=== PATIENT | male | born 1945 | race Caucasian/White ===

== ENCOUNTER 2017-09-21 22:49 | Emergency (ER) | END 2017-09-22 02:45 | disposition home or self-care (01) ==

== ENCOUNTER 2018-09-28 21:48 | Observation (INO) | payer MEDICARE, OTHER ==
[~2018-09-28] VITALS: Ht 167.6 cm; Wt 95.0 kg
[~2018-09-28 21:48] MED LIST: MECL-77 PO; ONDA4TAB14 PO
[2018-09-28 21:55] VITALS: Ht 167.6 cm; Wt 95.0 kg
--- NOTE | 2018-09-28 22:19 | ERD ---
ER Documentation Chief Complaint Chief Complaint [id number],chest pain relieved by aspirin 162 mg & nitro X3,hx CABG HPI The patient is 72-year-old male, presenting to the ER because of left-sided chest pain at 8pm about an hour after he finished eating, radiating down to the left. He had similar symptoms 2 days ago that lasted for about an hour. He denies chest pain with vomiting/exertion/diaphoresis, dyspnea, abdominal pain, vomiting, dysuria, diarrhea. He does not smoke nor drink He was treated by EMS aspirin 162 mg p.o. and 3 nitroglycerin spray with good response. He has minimal chest pain in the ER Medical history: CAD, history of TIA, hypertension, dyslipidemia, diabetes mellitus Past surgical history: CABG, bilateral inguinal herniorrhaphy ROS All systems reviewed and are negative except as per history of present illness. Medications Home Meds Active Scripts Ondansetron (Ondansetron Odt) 4 Mg Tab.rapdis, 4 MG PO Q6H PRN for NAUSEA AND/OR VOMITING, #10 TAB Prov:EVANGELIST MILAN DO 09/22/17 Meclizine Hcl* (Meclizine Hcl*) 25 Mg Tablet, 25 MG PO Q8H PRN for DIZZINESS, #22 TAB Prov:GREENEVANGELIST DO 09/22/17 Allergies Allergies: Coded Allergies: pioglitazone (Verified Allergy, Unknown, 09/21/17) PMhx/Soc History of Surgery: Yes (CABG 1998; ) Hx Neurological Disorder: Yes (TIA) Hx Cardiac Disorders: Yes (HTN; HLD) Hx Miscellaneous Medical Probl: Yes (DM) Hx Alcohol Use: Yes (SOCIAL) Hx Substance Use: No Hx Tobacco Use: No Smoking Status: Never smoker Physical Exam Vitals Vital Signs Date Temp Pulse Resp B/P (MAP) Pulse Ox O2 O2 Flow FiO2 Time Delivery Rate 09/28/18 Nasal 2 23:02 Cannula 09/28/18 100 18 116/69 100 Room Air 22:43 (85) 09/28/18 98.2 114 18 135/81 98 21:55 (99) Physical Exam Const: No acute distress. Head: Atraumatic. Eyes: Normal Conjunctiva. ENT: Normal External Ears, Nose and Mouth. Neck: Full range of motion. No meningismus. Resp: Clear to auscultation bilaterally. Cardio: Regular rate and rhythm. Abd: Soft, obese, normal bowel sounds, non tender. Skin: No petechiae or rashes. Back: No midline or flank tenderness. Ext: No cyanosis, or edema. Neur: Awake and alert. No focal deficit Psych: Normal Mood and Affect. Result Diagram: 09/28/182 09/28/182301 Results 24 hrs Laboratory Tests Test 09/28/18 23:02 White Blood Count 7.0 10^3/ul Red Blood Count 5.03 10^6/ul Hemoglobin 12.8 g/dl Hematocrit 40.3 % Mean Corpuscular Volume 80.1 fl Mean Corpuscular Hemoglobin 25.4 pg Mean Corpuscular Hemoglobin Concent 31.8 g/dl Red Cell Distribution Width 13.4 % Platelet Count 235 10^3/UL Mean Platelet Volume 11.0 fl Immature Granulocytes % 0.300 % Neutrophils % 59.0 % Lymphocytes % 29.5 % Monocytes % 7.8 % Eosinophils % 3.0 % Basophils % 0.4 % Nucleated Red Blood Cells % 0.0 /100WBC Immature Granulocytes # 0.020 10^3/ul Neutrophils # 4.1 10^3/ul Lymphocytes # 2.1 10^3/ul Monocytes # 0.6 10^3/ul Eosinophils # 0.2 10^3/ul Basophils # 0.0 10^3/ul Nucleated Red Blood Cells # 0.0 10^3/ul Sodium Level 140 mmol/L Potassium Level 4.4 mmol/L Chloride Level 101 mmol/L Carbon Dioxide Level 29 mmol/L Anion Gap 10 Blood Urea Nitrogen 17 mg/dl Creatinine 0.74 mg/dl Est Glomerular Filtrat Rate mL/min mL/min Glucose Level 316 mg/dl Calcium Level 10.0 mg/dl Troponin I < 0.012 ng/ml Procedures/MDM EKG: at 9:50pm Read by emergency physician Rate/Rhythm: Sinus tachycardia 115 beats/min QRS, ST, T-waves: No ST elevation, no T inversion, LPFB, inferior Q's Impression: Abnormal EKG EKG: at 11:34pm Read by emergency physician Rate/Rhythm: Normal Sinus Rhythm 81 beats/min QRS, ST, T-waves: No ST elevation, no T inversion, inferior Q's Impression: Abnormal EKG Portable chest x-ray radiologist report is pending MEDICAL MAKING DECISION: The patient is a 72-year-old male with multiple cardiac risk factors, presenting with acute chest pain that is concerning for acute ACS. The differential diagnoses considered include but are not limited to acute coronary syndrome, acute myocardial infarction, pericarditis, pulmonary embolism, aortic dissection, pneumonia, pleural effusion, pneumothorax, GERD, chest wall pain. Departure Diagnosis: Primary Impression: Chest pain Additional Impressions: Diabetes mellitus with hyperglycemia Anemia Condition: Stable Comments I discussed the findings with the patient. I discussed the patient with Dr. Chambers at 12:05 AM, who was made aware of the lab, the treatment, the patient condition. The patient is admitted to Tel Obs Disclaimer: Inadvertent spelling and grammatical errors are likely due to EHR/dictation software use and do not reflect on the overall quality of patient care. Also, please note that the electronic time recorded on this note does not necessarily reflect the actual time of the patient encounter. VINCENT ESTES MD September 28, 2018 22:19
[2018-09-29] VITALS (11 sets, daily range): BP systolic 128–157; BP diastolic 68–87; PULSE 79–101; RESP 18–20
[2018-09-29] MEDS ORDERED: DOCUSATE SODIUM 100 MG CAP PO PRN (00:30)
[2018-09-29] MEDS ORDERED: BISACODYL (EC) 5 MG TAB PO PRN (00:30)
[2018-09-29] MEDS ORDERED: ACETAMINOPHEN 325 MG TAB PO PRN (00:30)
[2018-09-29] MEDS ORDERED: NACL 0.9% 3 ML SYG IV SCH (00:30)
[2018-09-29] MEDS ORDERED: morphine 2 MG INJ IV PRN (00:30)
[2018-09-29] MEDS ORDERED: ONDANSETRON 4 MG INJ IV PRN (00:30)
[2018-09-29] MEDS ORDERED: NITROGLYCERIN (SL) 0.4 MG TAB SL PRN (00:30)
--- NOTE | 2018-09-29 00:31 | HP ---
Date/Time of Note Date/Time of Note DATE: 09/29/18 TIME: 00:30 Assessment/Plan VTE Prophylaxis SCD applied (from Nsg): Yes Pharmacological prophylaxis: NA/contraindicated Pharm contraindication: low risk/ambulating Lines/Catheters IV Catheter Type (from Nrsg): Peripheral IV Assessment/Plan Hospital Course This is a 72-year-old male being admitted to the telemetry floor for: #1 chest pain: Rule out ACS versus GI cause. Patient does have a significant cardiac history as well as risk factors therefore we will rule out ACS. Will check cardiac enzymes x3, the first that was negative. Will check an echocardiogram. Resume aspirin/statin/beta-fátima/ ARB. Will consult cardiology . We will also initiate the patient on Zantac 150 mg twice daily. #2 suspect GERD: I have counseled him on decreasing his spicy food intake as well as fatty foods. I have suggested not eating meals less than 3 hours before bedtime. Sleep with head elevated with additional pillows. I will also initiate him on Zantac 150 mg twice daily. #3 coronary artery disease: Patient is status post CABG, AAA repair. Continue aspirin/beta-fátima/ARB/statin #4 diabetes mellitus: We will check hemoglobin A 1C, will resume Lantus, will hold home oral medications. #5 hyperlipidemia: Continue statin, fibrate, check lipid panel #6 DVT GI prophylaxis: SCDs, H2 fátima Further treatment strategy will be implemented as per the clinical course Result Diagram: 09/28/18 2302 09/28/18 2302 Results 24hrs Laboratory Tests Test 09/28/18 23:02 White Blood Count 7.0 Red Blood Count 5.03 Hemoglobin 12.8 L Hematocrit 40.3 L Mean Corpuscular Volume 80.1 L Mean Corpuscular Hemoglobin 25.4 L Mean Corpuscular Hemoglobin Concent 31.8 L Red Cell Distribution Width 13.4 Platelet Count 235 # Mean Platelet Volume 11.0 H Immature Granulocytes % 0.300 Neutrophils % 59.0 Lymphocytes % 29.5 Monocytes % 7.8 Eosinophils % 3.0 Basophils % 0.4 Nucleated Red Blood Cells % 0.0 Immature Granulocytes # 0.020 Neutrophils # 4.1 Lymphocytes # 2.1 Monocytes # 0.6 Eosinophils # 0.2 Basophils # 0.0 Nucleated Red Blood Cells # 0.0 Sodium Level 140 Potassium Level 4.4 Chloride Level 101 Carbon Dioxide Level 29 Anion Gap 10 Blood Urea Nitrogen 17 Creatinine 0.74 Est Glomerular Filtrat Rate mL/min Glucose Level 316 H Calcium Level 10.0 Troponin I < 0.012 HPI/ROS Admit Date/Time Admit Date/Time Hx of Present Illness Chief complaint: Left-sided chest pain after eating This is a 72-year-old male with a past medical history of CABG and AAA repair who presented to the emergency department with left-sided chest pain. He did present via EMS and received a loading dose of aspirin as well as 3 nitroglycerin spray prior to coming to the emergency department. Patient reports that after eating he experienced chest pain an hour after at approximately 8 PM. He states that he had radiation to his left arm. His is also present at the bedside and she also reported that 2 days prior to that he had a similar episode again that occurred with him eating as well. He denies any diaphoresis or nausea vomiting or lower extremity edema. He does report that he eats spicy food. Allergies: Actos Medications: See LEIGH WAGNER Const: As per HPI Eyes : No pain discharge or redness or change in visual acuity ENT: No pain, sore throat, congestion, congestion, dysphagia or discharge Respiratory: No shortness of breath, cough, sputum, wheezing, or pleuritic pain Cardiovascular: As per HPI GI : As per HPI Genitourinary: No dysuria, hematuria, flank pain , discharge or CVA tenderness Musculoskeletal: No joint pain, back pain, neck pain, restricted range of motion in neck or joints Skin: No rash, bruising or hives Neuro: No headache, dizziness, syncope, seizure, focal weakness Endocrine: No polyuria, polydipsia, temperature intolerance Psych: No hallucination, depression, anxiety or suicidal ideation PMH/Family/Social Past Medical History CAD, history of TIA, hypertension, dyslipidemia, diabetes mellitus Medications Current Medications IV Flush (NS 3 ml) 3 ml PER PROTOCOL IV ; Start 09/29/18 at 00:30 Ondansetron HCl (Zofran Inj) 4 mg Q6H PRN IV NAUSEA/VOMITING; Start 09/29/18 at 00:30 Aspirin (Aspirin) 81 mg DAILY PO ; Start 09/29/18 at 09:00 Nitroglycerin (Nitroglycerin (Sl Tab) 0.4 Mg) 1 tab Q5M PRN SL .CHEST PAIN; Start 09/29/18 at 00:30 Acetaminophen (Tylenol Tab) 650 mg Q6H PRN PO .PAIN 1-3 OR TEMP; Start 09/29/18 at 00:30 Morphine Sulfate (morphine) 2 mg Q4H PRN IV .PAIN 7-10; Start 09/29/18 at 00:30 Docusate Sodium (Colace) 100 mg Q12H PRN PO .CONSTIPATION; Start 09/29/18 at 00:30 Bisacodyl (Dulcolax) 5 mg DAILY PRN PO .CONSTIPATION; Start 09/29/18 at 00:30 Coded Allergies: pioglitazone (Unverified Allergy, Unknown, 09/29/18) Past Surgical History CABG, bilateral inguinal herniorrhaphy, AAA repair Family History Significant Family History: no pertinent family hx Social History Alcohol Use: occasionally Smoking Status: Never smoker Drug Use: none Exam/Review of Systems Vital Signs Vitals Vital Signs Date Temp Pulse Resp B/P (MAP) Pulse Ox O2 O2 Flow FiO2 Time Delivery Rate 09/28/18 Nasal 2 23:02 Cannula 09/28/18 100 18 116/69 100 22:43 (85) 09/28/18 98.2 21:55 Exam Exam General: Patient is a pleasant male currently lying in bed in no acute distress HEENT: Atraumatic, normocephalic. The pupils are equal, round and reactive. Extraocular motor are intact Neck: Supple with full range of motion. No rigidity or meningismus Chest: Nontender Lungs: Clear to auscultation bilaterally no crackles rales or wheezing Heart: Normal S1-S2, Regular rhythm and rate. No murmur, S3, or S4 Abdomen: Obese, soft, mild epigastric tenderness palpation nondistended , bowel sounds are present. No guarding no rebound tenderness , No masses or organomegaly. No costovertebral temporal angle mass Extremities: Normal to inspection, no edema no cyanosis Neurologic: Normal mental status, speech normal, cranial nerves II through XII are intact, motor and sensory are intact, Additional Comments PROCEDURE: CHEST - 1 VIEW CLINICAL INDICATION: 72-year-old male with chest pain. TECHNIQUE: A single frontal AP semi-erect portable view of the chest was performed. The images were reviewed on a PACS workstation. COMPARISON: None. FINDINGS: The patient has had a prior median sternotomy. The cardiomediastinal silhouette is mildly enlarged. There is a shallow inspiration with elevation right hemidiaphragm. There is mild bilateral lower lung zone subsegmental atelectasis. There is no evidence for focal consolidation. There is no evidence for congestive heart failure. There is no evidence for pneumothorax. IMPRESSION: 1. Status post median sternotomy. 2. Cardiomegaly. 3. Shallow inspiration with elevated right hemidiaphragm. 4. Mild bilateral lower lung zone subsegmental atelectasis. .Pedro Jacob MD, MD Date Time Electronically viewed and signed by .Pedro Jacob MD, MD on 09/29/2018 03:04 .M/ CC: VINCNET ESTES MD [phone] Initial EKG Rate/Rhythm: Sinus tachycardia 115 beats/min QRS, ST, T-waves: No ST elevation, no T inversion, LPFB, inferior Q's Impression: Abnormal EKG Repeat EKG Rate/Rhythm: Normal Sinus Rhythm 81 beats/min QRS, ST, T-waves: No ST elevation, no T inversion, inferior Q's Impression: Abnormal EKG RAFAELA OLEARY September 29, 2018 00:31
[2018-09-29] MEDS ORDERED: GLUCOSE GEL 15 GRAM TUBE PO PRN ×2 (00:36)
[2018-09-29] MEDS ORDERED: GLUCAGON 1 MG INJ IM PRN (00:36)
[2018-09-29] MEDS ORDERED: GLUCOSE GEL 15 GRAM TUBE BUCCAL PRN (00:36)
[2018-09-29] MEDS ORDERED: DEXTROSE 50% 50 ML SYRINGE IV PRN ×2 (00:36)
[2018-09-29] MEDS ORDERED: LANT3I SC (01:22)
[2018-09-29] MEDS ORDERED: AMLO-147 PO (01:22)
[2018-09-29] MEDS ORDERED: TAMS-14 PO (01:22)
[2018-09-29] MEDS ORDERED: FENO160T2 PO (01:22)
[2018-09-29] MEDS ORDERED: CARV12.579 PO (01:22)
[2018-09-29] MEDS ORDERED: ASPI-535 PO (01:22)
[2018-09-29] MEDS ORDERED: CLOP75TA28 PO (01:22)
[2018-09-29] MEDS ORDERED: METF-730 PO (01:22)
[2018-09-29] MEDS ORDERED: ROSU5TAB11 PO (01:22)
[2018-09-29] MEDS ORDERED: AZIL80TA PO (01:22)
[2018-09-29] MEDS ORDERED: ACCU-CHEK XX SCH (02:00)
[2018-09-29] MEDS: INSULIN ASPART [NOVOLOG] 3 ML PEN SC SCH ×3 (07:55→18:05)
[2018-09-29] MEDS ORDERED: CLOPIDOGREL 75 MG TAB PO SCH (09:00)
[2018-09-29] MEDS ORDERED: ROSUVASTATIN CALCIUM 5 MG PO SCH (09:00)
[2018-09-29] MEDS ORDERED: ASPIRIN 81 MG TAB PO SCH (09:00)
[2018-09-29] MEDS ORDERED: ASPIRIN (EC) 81 MG TAB PO SCH (09:00)
[2018-09-29] MEDS ORDERED: RANITIDINE 150 MG TAB PO SCH (09:00)
[2018-09-29] MEDS ORDERED: AZILSARTAN MEDOXOMIL 80 MG PO SCH (09:00)
[2018-09-29] MEDS ORDERED: AMLODIPINE 10 MG TAB PO SCH (09:00)
--- NOTE | 2018-09-29 13:55 | PN ---
Date/Time of Note Date/Time of Note DATE: 09/29/18 TIME: 13:55 Assessment/Plan VTE Prophylaxis Risk score (from Ns)>0 risk: 3 SCD applied (from Ns): No SCD contraindicated: low risk/ambulating Pharmacological prophylaxis: other Lines/Catheters IV Catheter Type (from Nrsg): Peripheral IV Urinary Cath still in place: No Assessment/Plan Assessment/Plan 1. Acute chest pain, rule out ACS - in setting of CABG will need to rule out ACS - Does sound more GI in nature - trops negative - ECHO pending 2. GERD - on H2 fátima 3. CAD s/p CABG - per son patient had stress test 2 weeks ago but unsure results. He was scheduled for some type of CT scan - continue home medications 4. DM - A1c noted - ISS and accuchecks 5. Disposition - Will await cardiology input and if no further intervention needed, will d/c home if chest pain resolves Result Diagram: 09/29/18 0709 09/29/18 0709 Results 24hrs Laboratory Tests Test 09/28/18 23:02 09/29/18 02:45 09/29/18 07:09 09/29/18 07:41 White Blood Count 7.0 6.5 Red Blood Count 5.03 4.89 Hemoglobin 12.8 L 12.3 L Hematocrit 40.3 L 39.0 L Mean Corpuscular 80.1 L 79.8 L Volume Mean Corpuscular 25.4 L 25.2 L Hemoglobin Mean Corpuscular 31.8 L 31.5 L Hemoglobin Concent Red Cell 13.4 13.6 Distribution Width Platelet Count 235 # 203 Mean Platelet Volume 11.0 H 10.8 H Immature 0.300 0.300 Granulocytes % Neutrophils % 59.0 55.9 Lymphocytes % 29.5 30.5 Monocytes % 7.8 9.4 Eosinophils % 3.0 3.4 Basophils % 0.4 0.5 Nucleated Red Blood 0.0 0.0 Cells % Immature 0.020 0.020 Granulocytes # Neutrophils # 4.1 3.7 Lymphocytes # 2.1 2.0 Monocytes # 0.6 0.6 Eosinophils # 0.2 0.2 Basophils # 0.0 0.0 Nucleated Red Blood 0.0 0.0 Cells # Sodium Level 140 141 Potassium Level 4.4 4.5 Chloride Level 101 106 Carbon Dioxide Level 29 28 Anion Gap 10 7 Blood Urea Nitrogen 17 16 Creatinine 0.74 0.67 Est Glomerular Filtrat Rate mL/min Glucose Level 316 H 138 # Calcium Level 10.0 9.4 Magnesium Level 1.7 Troponin I < 0.012 0.042 Bedside Glucose 207 136 Hemoglobin A1c 8.7 H Total Bilirubin 0.3 Direct Bilirubin 0.00 Indirect Bilirubin 0.3 Aspartate Amino 28 Transf (AST/SGOT) Alanine 48 Aminotransferase (AL T/SGPT) Alkaline Phosphatase 34 L Creatine Kinase 71 Creatine Kinase 1.6 Index Creatinine Kinase MB 1.17 (Mass) Total Protein 6.9 Albumin 4.2 Globulin 2.70 Albumin/Globulin 1.55 Ratio Triglycerides Level 192 H Cholesterol Level 141 LDL Cholesterol, 73 Calculated HDL Cholesterol 30 L Cholesterol/HDL 4.7 Ratio Thyroid Stimulating 2.530 Hormone (TSH) Test 09/29/18 10:43 09/29/18 12:03 Creatine Kinase 62 Creatine Kinase 1.7 Index Creatinine Kinase MB 1.07 (Mass) Troponin I 0.033 Bedside Glucose 187 Subjective 24 Hr Interval Summary Free Text/Dictation Patient states he believes his chest pain is more GI related. Denies any shortness of breath or dizziness. Exam/Review of Systems Exam Vitals Vital Signs Date Temp Pulse Resp B/P (MAP) Pulse Ox O2 O2 Flow FiO2 Time Delivery Rate 09/29/18 82 12:00 09/29/18 98.5 18 141/72 95 11:21 (95) 09/29/18 Room Air 04:43 09/28/18 2 23:02 Exam General: no acute distress. answering questions appropriately Neck: Supple Chest: Nontender Lungs: Clear to auscultation bilaterally no crackles rales or wheezing Heart: Normal S1-S2, Regular rhythm and rate. No murmur, S3, or S4 Abdomen: Obese, soft, nontender, nondistended, bowel sounds are present. No guarding no rebound tenderness Extremities: Normal to inspection, no edema no cyanosis Results Results 24hrs Laboratory Tests Test 09/28/18 23:02 09/29/18 02:45 09/29/18 07:09 09/29/18 07:41 White Blood Count 7.0 6.5 Red Blood Count 5.03 4.89 Hemoglobin 12.8 L 12.3 L Hematocrit 40.3 L 39.0 L Mean Corpuscular 80.1 L 79.8 L Volume Mean Corpuscular 25.4 L 25.2 L Hemoglobin Mean Corpuscular 31.8 L 31.5 L Hemoglobin Concent Red Cell 13.4 13.6 Distribution Width Platelet Count 235 # 203 Mean Platelet Volume 11.0 H 10.8 H Immature 0.300 0.300 Granulocytes % Neutrophils % 59.0 55.9 Lymphocytes % 29.5 30.5 Monocytes % 7.8 9.4 Eosinophils % 3.0 3.4 Basophils % 0.4 0.5 Nucleated Red Blood 0.0 0.0 Cells % Immature 0.020 0.020 Granulocytes # Neutrophils # 4.1 3.7 Lymphocytes # 2.1 2.0 Monocytes # 0.6 0.6 Eosinophils # 0.2 0.2 Basophils # 0.0 0.0 Nucleated Red Blood 0.0 0.0 Cells # Sodium Level 140 141 Potassium Level 4.4 4.5 Chloride Level 101 106 Carbon Dioxide Level 29 28 Anion Gap 10 7 Blood Urea Nitrogen 17 16 Creatinine 0.74 0.67 Est Glomerular Filtrat Rate mL/min Glucose Level 316 H 138 # Calcium Level 10.0 9.4 Magnesium Level 1.7 Troponin I < 0.012 0.042 Bedside Glucose 207 136 Hemoglobin A1c 8.7 H Total Bilirubin 0.3 Direct Bilirubin 0.00 Indirect Bilirubin 0.3 Aspartate Amino 28 Transf (AST/SGOT) Alanine 48 Aminotransferase (AL T/SGPT) Alkaline Phosphatase 34 L Creatine Kinase 71 Creatine Kinase 1.6 Index Creatinine Kinase MB 1.17 (Mass) Total Protein 6.9 Albumin 4.2 Globulin 2.70 Albumin/Globulin 1.55 Ratio Triglycerides Level 192 H Cholesterol Level 141 LDL Cholesterol, 73 Calculated HDL Cholesterol 30 L Cholesterol/HDL 4.7 Ratio Thyroid Stimulating 2.530 Hormone (TSH) Test 09/29/18 10:43 09/29/18 12:03 Creatine Kinase 62 Creatine Kinase 1.7 Index Creatinine Kinase MB 1.07 (Mass) Troponin I 0.033 Bedside Glucose 187 Medications Medication Current Medications IV Flush (NS 3 ml) 3 ml PER PROTOCOL IV ; Start 09/29/18 at 00:30 Ondansetron HCl (Zofran Inj) 4 mg Q6H PRN IV NAUSEA/VOMITING; Start 09/29/18 at 00:30 Nitroglycerin (Nitroglycerin (Sl Tab) 0.4 Mg) 1 tab Q5M PRN SL .CHEST PAIN; Start 09/29/18 at 00:30 Acetaminophen (Tylenol Tab) 650 mg Q6H PRN PO .PAIN 1-3 OR TEMP; Start 09/29/18 at 00:30 Morphine Sulfate (morphine) 2 mg Q4H PRN IV .PAIN 7-10; Start 09/29/18 at 00:30 Docusate Sodium (Colace) 100 mg Q12H PRN PO .CONSTIPATION; Start 09/29/18 at 00:30 Bisacodyl (Dulcolax) 5 mg DAILY PRN PO .CONSTIPATION; Start 09/29/18 at 00:30 Diagnostic Test (Pha) (Accu-Chek) 1 ea 02 XX ; Start 09/29/18 at 02:00 Insulin Aspart (Novolog Insulin Pen) NOVOLOG *MILD* ALGORITHM WITH MEALS BEDTIME SC Last administered on 09/29/18at 12:28; Admin Dose 2 UNIT; Start 09/29/18 at 07:55 Miscellaneous Information 1 ea NOTE XX ; Start 09/29/18 at 00:36 Glucose (Glutose) 15 gm Q15M PRN PO DECREASED GLUCOSE; Start 09/29/18 at 00:36 Glucose (Glutose) 22.5 gm Q15M PRN PO DECREASED GLUCOSE; Start 09/29/18 at 00:36 Dextrose (D50w Syringe) 25 ml Q15M PRN IV DECREASED GLUCOSE; Start 09/29/18 at 00:36 Dextrose (D50w Syringe) 50 ml Q15M PRN IV DECREASED GLUCOSE; Start 09/29/18 at 00:36 Glucagon (Glucagen) 1 mg Q15M PRN IM DECREASED GLUCOSE; Start 09/29/18 at 00:36 Glucose (Glutose) 15 gm Q15M PRN BUCCAL DECREASED GLUCOSE; Start 09/29/18 at 00:36 Amlodipine Besylate (Norvasc) 10 mg DAILY PO Last administered on 09/29/18at 09:04; Admin Dose 10 MG; Start 09/29/18 at 09:00 Aspirin (Halfprin) 81 mg DAILY PO Last administered on 09/29/18at 09:04; Admin Dose 81 MG; Start 09/29/18 at 09:00 Carvedilol (Coreg) 12.5 mg BID WITH MEALS PO ; Start 09/29/18 at 17:55 Clopidogrel Bisulfate (plaVIX) 75 mg DAILY PO Last administered on 09/29/18 09:04; Admin Dose 75 MG; Start 09/29/18 at 09:00 Tamsulosin HCl (Flomax) 0.4 mg QHS PO ; Start 09/29/18 at 21:00 Miscellaneous Information 80 mg DAILY PO ; Start 09/29/18 at 09:00; Status UNV Miscellaneous Information 160 mg DAILY PO ; Start 09/29/18 at 09:00; Status UNV Ranitidine HCl (Zantac) 150 mg BID PO Last administered on 09/29/18at 09:04; Admin Dose 150 MG; Start 09/29/18 at 09:00 Atorvastatin Calcium (Lipitor) 20 mg HS PO ; Start 09/29/18 at 21:00 Insulin Glargine (Lantus) 30 units QHS SC ; Start 09/29/18 at 21:00 RADHA ORTIZ MD September 29, 2018 13:55
[2018-09-29] MEDS ORDERED: FENOFIBRATE 145 MG TAB PO SCH (15:30)
[2018-09-29] MEDS ORDERED: RANI150T5 PO (17:39)
--- NOTE | 2018-09-29 17:43 | RADRPT ---
Echocardiogram Report Patient Name: Arie GAMBLE ID: [id number] : 1945 (72y 11m)Study Date: 09/29/2018 7:24:03 AM Gender: Kimcession #: [id number] Tech: Kedar Crystal [facility] Location: [address] Ref.Physician: RAFAELA OLEARY Height(Cm): BSA: Weight(Kg): Quality: AdequateOrder Physician: RAFAELA OLEARY Account #: Procedures: Echocardiographic Report: Transthoracic echocardiogram with complete 2D, M-Mode, and doppler examination. Indications: Chest Pain. Measurements: 2D/M Mode Doppler Measurement Value Normal Range Measurement Value Normal Range LVIDd 2D 5.2 [ 4.2 - 5.8 ] cm AV Peak Titus 1.2 [ 100.0 - 170.0 ] cm/sec LVIDs 2D 3.8 [ 2.5 - 4.0 ] cm AV Peak PG 6.0 [ 2.0 - 9.0 ] mmHg LVPWd 2D 1.1 [ 0.6 - 1.0 ] cm LVOT Peak Titus 0.9 [ 70.0 - 110.0 ] cm/sec IVSd 2D 1.2 [ 0.6 - 1.0 ] cm LVOT Peak PG 3.0 [ 2.0 - 6.0 ] mmHg AoR Diam 2D 3.6 [ 2.6 - 3.4 ] cm MV E Peak Titus 0.9 [ 60.0 - 130.0 ] cm/sec EDV 2D 127.0 [ 62.0 - 150.0 ] ml MV A Peak Titus 0.9 [ 100.0 - 120.0 ] cm/sec ESV 2D 60.4 [ 21.0 - 61.0 ] ml MV E/A 0.9 [ 0.8 - 1.5 ] ratio EF 2D 52.4 [ 52.0 - 72.0 ] percent MV Decel Time 187 [ 104 - 258 ] msec LA Dimen 2D 3.6 [ 3.0 - 4.0 ] cm Lat E` Tiuts 0.1 [ 10.0 - 15.0 ] cm/sec Lateral E/E` 10.5 [ 1.0 - 2.0 ] ratio MV E/A 0.9 [ 0.8 - 1.5 ] ratio TR Peak Titus 1.6 [ 100.0 - 280.0 ] cm/sec TR Peak PG 10.0 mmHg Findings: Left Ventricle: Lower limits of normal systolic function. Normal left ventricular cavity size. Left ventricular wall thickness upper limits of normal. Ejection fraction is visually estimated at 50-55 %. Tissue Doppler/Mitral Doppler indices are consistent with impaired relaxation (Stage I diastolic dysfunction). Right Ventricle: Normal right ventricular size. Normal right ventricular systolic function. Left Atrium: The left atrium is normal in size. Right Atrium: The right atrium is normal in size. Mitral Valve: Mild mitral leaflet calcification. Mild mitral annular calcification. Trace mitral regurgitation. Aortic Valve: No hemodynamically significant aortic stenosis by doppler. Aortic sclerosis. Tricuspid Valve: Normal appearance of the tricuspid valve. Estimated peak PA systolic pressure 10 mmHg. There is trace tricuspid regurgitation. Pericardium: Normal pericardium with no significant pericardial effusion. Aorta: Normal aortic root. IVC: The IVC is not well visualized. Conclusions: Lower limits of normal systolic function. Normal left ventricular cavity size. Left ventricular wall thickness upper limits of normal. Ejection fraction is visually estimated at 50-55 %. Tissue Doppler/Mitral Doppler indices are consistent with impaired relaxation (Stage I diastolic dysfunction). Electronically Signed By: Orlando Avery 2018-09-29 17:42:29 PDT
--- NOTE | 2018-09-29 18:24 | CONS ---
Assessment/Plan Assessment/Plan Hospital Course (Demo Recall) Assessment: Chest pain - ruled out for myocardial infarction; some characteristics to suggest gastrointestinal etiology, though angina is also possible Coronary artery disease - status post CABG (1998), PCI (~2003) Abdominal aortic aneurysm - status post EVAR Hypertension Dyslipidemia Diabetes mellitus Recommendations: -offered further evaluation with coronary CTA, but patient declines to stay inpatient for further evaluation -follow up with outpatient environmental tech to review results of recent cardiac stress testing two weeks ago, and discuss further evaluation if indicated -stable for discharge from cardiac standpoint Consultation Date/Type/Reason Admit Date/Time Type of Consult Cardiology Reason for Consultation chest pain Date/Time of Note DATE: 09/29/18 TIME: 18:14 Hx of Present Illness The patient is a 72 year-old male with coronary artery disease who presented with chest pain. He describes two episodes of chest pain the day prior to presentation and then the day of presentation. He reports eating food and then having onset of a left-sided chest pressure with radiation down the arm shortly after eating. EKG showed sinus rhythm with Q waves in III and aVF, and no acute ischemic changes. Troponins have been in the normal range x 3. Transthoracic echocardiogram showed left ventricular ejection fraction of 50-55%. He has not h ad recurrent chest pain since hospital admission. The patient reports having an outpatient cardiac stress test two weeks ago after establishing care with a new environmental tech, but he does not know the results of the exam yet. 14 point review of systems negative other than per HPI. Past Medical History Coronary artery disease - status post CABG (1998), PCI (~2003) Abdominal aortic aneurysm - status post EVAR Hypertension Dyslipidemia Diabetes mellitus Home Meds Reported Medications Aspirin Ec (Aspir 81) 81 Mg Tablet.dr, 81 MG PO DAILY, #30 TAB 09/29/18 Insulin Glargine* (Lantus*) 100 Unit/Ml Soln, 60 UNIT SC QHS, #1 VIAL 09/29/18 Amlodipine Besylate* (Amlodipine Besylate*) 10 Mg Tablet, 10 MG PO DAILY for 30 Days, #30 09/29/18 Rosuvastatin Calcium (Rosuvastatin Calcium) 5 Mg Tablet, 5 MG PO DAILY for 30 Days, #30 09/29/18 Clopidogrel Bisulfate (Clopidogrel) 75 Mg Tablet, 75 MG PO DAILY for 30 Days, #30 09/29/18 Carvedilol* (Carvedilol*) 12.5 Mg Tablet, 12.5 MG PO BID WITH MEALS for 30 Days, #60 09/29/18 Metformin HCl (Metformin HCl ER) 500 Mg [id number], 1000 MG PO BID for 30 Days, #120 09/29/18 Tamsulosin Hcl* (Flomax*) 0.4 Mg Cap.er.24h, 0.4 MG PO QHS for 30 Days, #30 09/29/18 Azilsartan Medoxomil (Edarbi) 80 Mg Tablet, 80 MG PO DAILY for 30 Days, #30 09/29/18 Fenofibrate (Triglide) 160 Mg Tablet, 160 MG PO DAILY for 30 Days, #30 09/29/18 Discontinued Scripts Ondansetron (Ondansetron Odt) 4 Mg Tab.rapdis, 4 MG PO Q6H PRN for NAUSEA AND/OR VOMITING, #10 TAB Prov:EVANGELIST MILAN DO 09/22/17 Meclizine Hcl* (Meclizine Hcl*) 25 Mg Tablet, 25 MG PO Q8H PRN for DIZZINESS, #22 TAB Prov:EVANGELIST MILAN DO 09/22/17 Medications Current Medications IV Flush (NS 3 ml) 3 ml PER PROTOCOL IV ; Start 09/29/18 at 00:30 Ondansetron HCl (Zofran Inj) 4 mg Q6H PRN IV NAUSEA/VOMITING; Start 09/29/18 at 00:30 Nitroglycerin (Nitroglycerin (Sl Tab) 0.4 Mg) 1 tab Q5M PRN SL .CHEST PAIN; Start 09/29/18 at 00:30 Acetaminophen (Tylenol Tab) 650 mg Q6H PRN PO .PAIN 1-3 OR TEMP; Start 09/29/18 at 00:30 Morphine Sulfate (morphine) 2 mg Q4H PRN IV .PAIN 7-10; Start 09/29/18 at 00:30 Docusate Sodium (Colace) 100 mg Q12H PRN PO .CONSTIPATION; Start 09/29/18 at 00:30 Bisacodyl (Dulcolax) 5 mg DAILY PRN PO .CONSTIPATION; Start 09/29/18 at 00:30 Diagnostic Test (Pha) (Accu-Chek) 1 ea 02 XX ; Start 09/29/18 at 02:00 Insulin Aspart (Novolog Insulin Pen) NOVOLOG *MILD* ALGORITHM WITH MEALS BEDTIME SC Last administered on 09/29/18at 18:05; Admin Dose 1 UNIT; Start 09/29/18 at 07:55 Miscellaneous Information 1 ea NOTE XX ; Start 09/29/18 at 00:36 Glucose (Glutose) 15 gm Q15M PRN PO DECREASED GLUCOSE; Start 09/29/18 at 00:36 Glucose (Glutose) 22.5 gm Q15M PRN PO DECREASED GLUCOSE; Start 09/29/18 at 00:36 Dextrose (D50w Syringe) 25 ml Q15M PRN IV DECREASED GLUCOSE; Start 09/29/18 at 00:36 Dextrose (D50w Syringe) 50 ml Q15M PRN IV DECREASED GLUCOSE; Start 09/29/18 at 00:36 Glucagon (Glucagen) 1 mg Q15M PRN IM DECREASED GLUCOSE; Start 09/29/18 at 00:36 Glucose (Glutose) 15 gm Q15M PRN BUCCAL DECREASED GLUCOSE; Start 09/29/18 at 00:36 Amlodipine Besylate (Norvasc) 10 mg DAILY PO Last administered on 09/29/18at 09:04; Admin Dose 10 MG; Start 09/29/18 at 09:00 Aspirin (Halfprin) 81 mg DAILY PO Last administered on 09/29/18at 09:04; Admin Dose 81 MG; Start 09/29/18 at 09:00 Carvedilol (Coreg) 12.5 mg BID WITH MEALS PO Last administered on 09/29/18at 17:07; Admin Dose 12.5 MG; Start 09/29/18 at 17:55 Clopidogrel Bisulfate (plaVIX) 75 mg DAILY PO Last administered on 09/29/18at 09:04; Admin Dose 75 MG; Start 09/29/18 at 09:00 Tamsulosin HCl (Flomax) 0.4 mg QHS PO ; Start 09/29/18 at 21:00 Miscellaneous Information 80 mg DAILY PO ; Start 09/29/18 at 09:00; Status UNV Fenofibrate (Tricor) 160 mg DAILY PO Last administered on 09/29/18at 16:06; Admin Dose 160 MG; Start 09/29/18 at 15:30 Ranitidine HCl (Zantac) 150 mg BID PO Last administered on 09/29/18at 09:04; Admin Dose 150 MG; Start 09/29/18 at 09:00 Atorvastatin Calcium (Lipitor) 20 mg HS PO ; Start 09/29/18 at 21:00 Insulin Glargine (Lantus) 30 units QHS SC ; Start 09/29/18 at 21:00 Miscellaneous Information (*Order Clarification Bulletin) *Azilsartan Medoxomil (Edarbi)... Q8H XX ; Start 09/29/18 at 18:30 Allergies: Coded Allergies: pioglitazone (Unverified Allergy, Unknown, 09/29/18) Past Surgical History Past Surgical Hx: coronary bypass surgery Family History Significant Family History: no pertinent family hx Social History Alcohol Use: occasionally Smoking Status: Never smoker Drug Use: none Exam/Review of Systems Vital Signs Vitals Vital Signs Date Temp Pulse Resp B/P (MAP) Pulse Ox O2 O2 Flow FiO2 Time Delivery Rate 09/29/18 94 152/87 17:05 (108) 09/29/18 98.3 95 15:08 09/29/18 18 11:21 09/29/18 Room Air 04:43 09/28/18 2 23:02 Exam Constitutional: alert, well developed Psych: no complaints, nl mood/affect Head: normocephalic, atraumatic Eyes: nl conjunctiva, nl lids ENMT: nl external ears & nose, nl nasal mucosa & septum Neck: supple, non-tender Respiratory: clear to auscultation, normal air movement Cardiovascular: regular rate and rhythm Gastrointestinal: soft, non-tender Musculoskeletal: nl extremities to inspection Extremities: No cyanosis, No clubbing, No edema Neurological: nl mental status, nl speech Labs Result Diagram: 09/29/18 0709 09/29/18 0709 Results 24hrs Laboratory Tests Test 09/28/18 23:02 09/29/18 02:45 09/29/18 07:09 09/29/18 07:41 White Blood Count 7.0 6.5 Red Blood Count 5.03 4.89 Hemoglobin 12.8 L 12.3 L Hematocrit 40.3 L 39.0 L Mean Corpuscular 80.1 L 79.8 L Volume Mean Corpuscular 25.4 L 25.2 L Hemoglobin Mean Corpuscular 31.8 L 31.5 L Hemoglobin Concent Red Cell 13.4 13.6 Distribution Width Platelet Count 235 # 203 Mean Platelet Volume 11.0 H 10.8 H Immature 0.300 0.300 Granulocytes % Neutrophils % 59.0 55.9 Lymphocytes % 29.5 30.5 Monocytes % 7.8 9.4 Eosinophils % 3.0 3.4 Basophils % 0.4 0.5 Nucleated Red Blood 0.0 0.0 Cells % Immature 0.020 0.020 Granulocytes # Neutrophils # 4.1 3.7 Lymphocytes # 2.1 2.0 Monocytes # 0.6 0.6 Eosinophils # 0.2 0.2 Basophils # 0.0 0.0 Nucleated Red Blood 0.0 0.0 Cells # Sodium Level 140 141 Potassium Level 4.4 4.5 Chloride Level 101 106 Carbon Dioxide Level 29 28 Anion Gap 10 7 Blood Urea Nitrogen 17 16 Creatinine 0.74 0.67 Est Glomerular Filtrat Rate mL/min Glucose Level 316 H 138 # Calcium Level 10.0 9.4 Magnesium Level 1.7 Troponin I < 0.012 0.042 Bedside Glucose 207 136 Hemoglobin A1c 8.7 H Total Bilirubin 0.3 Direct Bilirubin 0.00 Indirect Bilirubin 0.3 Aspartate Amino 28 Transf (AST/SGOT) Alanine 48 Aminotransferase (AL T/SGPT) Alkaline Phosphatase 34 L Creatine Kinase 71 Creatine Kinase 1.6 Index Creatinine Kinase MB 1.17 (Mass) Total Protein 6.9 Albumin 4.2 Globulin 2.70 Albumin/Globulin 1.55 Ratio Triglycerides Level 192 H Cholesterol Level 141 LDL Cholesterol, 73 Calculated HDL Cholesterol 30 L Cholesterol/HDL 4.7 Ratio Thyroid Stimulating 2.530 Hormone (TSH) Test 09/29/18 10:43 09/29/18 12:03 09/29/18 17:07 Creatine Kinase 62 Creatine Kinase 1.7 Index Creatinine Kinase MB 1.07 (Mass) Troponin I 0.033 Bedside Glucose 187 174 Medications Medications Current Medications IV Flush (NS 3 ml) 3 ml PER PROTOCOL IV ; Start 09/29/18 at 00:30 Ondansetron HCl (Zofran Inj) 4 mg Q6H PRN IV NAUSEA/VOMITING; Start 09/29/18 at 00:30 Nitroglycerin (Nitroglycerin (Sl Tab) 0.4 Mg) 1 tab Q5M PRN SL .CHEST PAIN; Start 09/29/18 at 00:30 Acetaminophen (Tylenol Tab) 650 mg Q6H PRN PO .PAIN 1-3 OR TEMP; Start 09/29/18 at 00:30 Morphine Sulfate (morphine) 2 mg Q4H PRN IV .PAIN 7-10; Start 09/29/18 at 00:30 Docusate Sodium (Colace) 100 mg Q12H PRN PO .CONSTIPATION; Start 09/29/18 at 00:30 Bisacodyl (Dulcolax) 5 mg DAILY PRN PO .CONSTIPATION; Start 09/29/18 at 00:30 Diagnostic Test (Pha) (Accu-Chek) 1 ea 02 XX ; Start 09/29/18 at 02:00 Insulin Aspart (Novolog Insulin Pen) NOVOLOG *MILD* ALGORITHM WITH MEALS BEDTIME SC Last administered on 09/29/18at 18:05; Admin Dose 1 UNIT; Start 09/29/18 at 07:55 Miscellaneous Information 1 ea NOTE XX ; Start 09/29/18 at 00:36 Glucose (Glutose) 15 gm Q15M PRN PO DECREASED GLUCOSE; Start 09/29/18 at 00:36 Glucose (Glutose) 22.5 gm Q15M PRN PO DECREASED GLUCOSE; Start 09/29/18 at 00:36 Dextrose (D50w Syringe) 25 ml Q15M PRN IV DECREASED GLUCOSE; Start 09/29/18 at 00:36 Dextrose (D50w Syringe) 50 ml Q15M PRN IV DECREASED GLUCOSE; Start 09/29/18 at 00:36 Glucagon (Glucagen) 1 mg Q15M PRN IM DECREASED GLUCOSE; Start 09/29/18 at 00:36 Glucose (Glutose) 15 gm Q15M PRN BUCCAL DECREASED GLUCOSE; Start 09/29/18 at 00:36 Amlodipine Besylate (Norvasc) 10 mg DAILY PO Last administered on 09/29/18at 09:04; Admin Dose 10 MG; Start 09/29/18 at 09:00 Aspirin (Halfprin) 81 mg DAILY PO Last administered on 09/29/18at 09:04; Admin Dose 81 MG; Start 09/29/18 at 09:00 Carvedilol (Coreg) 12.5 mg BID WITH MEALS PO Last administered on 09/29/18at 17:07; Admin Dose 12.5 MG; Start 09/29/18 at 17:55 Clopidogrel Bisulfate (plaVIX) 75 mg DAILY PO Last administered on 5/18/19at 09:04; Admin Dose 75 MG; Start 09/29/18 at 09:00 Tamsulosin HCl (Flomax) 0.4 mg QHS PO ; Start 09/29/18 at 21:00 Miscellaneous Information 80 mg DAILY PO ; Start 09/29/18 at 09:00; Status UNV Fenofibrate (Tricor) 160 mg DAILY PO Last administered on 09/29/18at 16:06; Admin Dose 160 MG; Start 09/29/18 at 15:30 Ranitidine HCl (Zantac) 150 mg BID PO Last administered on 09/29/18at 09:04; Admin Dose 150 MG; Start 09/29/18 at 09:00 Atorvastatin Calcium (Lipitor) 20 mg HS PO ; Start 09/29/18 at 21:00 Insulin Glargine (Lantus) 30 units QHS SC ; Start 09/29/18 at 21:00 Miscellaneous Information (*Order Clarification Bulletin) *Azilsartan Medoxomil (Edarbi)... Q8H XX ; Start 09/29/18 at 18:30 BRANDAN BUSTILLOS MD September 29, 2018 18:24
--- NOTE | 2018-09-29 18:40 | PDOCDIS ---
Discharge Instructions DIAGNOSIS Discharge Diagnosis 1. Acute chest pain, resolved 2. GERD 3. CAD s/p CABG 4. Diabetes Mellitus CONDITION [id number] Patient Condition: [id number] Stable HOME CARE INSTRUCTIONS: [id number] Diet Instructions: [id number] Low Fat /Cholesterol ACTIVITY: [id number] Activity Restrictions: [id number] No Restrictions FOLLOW UP/APPOINTMENTS Follow-up Plan 1. Follow up with your primary care physician in 1-2 weeks 2. Follow up with your Supervisor [employer] in 1 week 3. Take Ranitidine twice a day to help with acid reflux symptoms and avoid spicy, greasy, and heavy foods 4. If experiencing any concerning symptoms, please go to your closest emergency department RADHA ORTIZ MD September 29, 2018 18:40
--- NOTE | 2018-09-29 18:41 | DS ---
Date/Time of Note Date/Time of Note DATE: 09/29/18 TIME: 18:41 Discharge Summary Admission/Discharge Info Admit Date/Time September 29, 2018 at 00:06 Discharge Date/Time 09/29/18 Discharge Diagnosis 1. Acute chest pain, resolved 2. GERD 3. CAD s/p CABG 4. Diabetes Mellitus Patient Condition: Stable Consults Cardiology- Dr. Avery Hx of Present Illness Chief complaint: Left-sided chest pain after eating This is a 72-year-old male with a past medical history of CABG and AAA repair who presented to the emergency department with left-sided chest pain. He did present via EMS and received a loading dose of aspirin as well as 3 nitroglycerin spray prior to coming to the emergency department. Patient reports that after eating he experienced chest pain an hour after at approximately 8 PM. He states that he had radiation to his left arm. His is also present at the bedside and she also reported that 2 days prior to that he had a similar episode again that occurred with him eating as well. He denies any diaphoresis or nausea vomiting or lower extremity edema. He does report that he eats spicy food. Allergies: Actos Hospital Course Patient was admitted for chest pain and cardiology was consulted. ACS was ruled out with negative serial troponins. Chest pain resolved after given H2 fátima. Patient was offered CT Cardiac Angiogram given recent stress test with unknown results 2 weeks ago but patient refused to stay inhouse. Given patient has good outpatient follow up and cardiac symptoms resolved, patient was cleared for discharge by cardiology. Patient was instructed to follow up with her Nitrating Acid Mixer as outpatient. Patient was discharged home in stable condition. Home Meds Active Scripts Ranitidine Hcl* (Ranitidine Hcl*) 150 Mg Tablet, 150 MG PO BID for 30 Days, #60 TAB 1 Refill Prov:RADHA ORTIZ MD 09/29/18 Reported Medications Aspirin Ec (Aspir 81) 81 Mg Tablet., 81 MG PO DAILY, #30 TAB 09/29/18 Insulin Glargine* (Lantus*) 100 Unit/Ml Soln, 60 UNIT SC QHS, #1 VIAL 09/29/18 Amlodipine Besylate* (Amlodipine Besylate*) 10 Mg Tablet, 10 MG PO DAILY for 30 Days, #30 09/29/18 Rosuvastatin Calcium (Rosuvastatin Calcium) 5 Mg Tablet, 5 MG PO DAILY for 30 Days, #30 09/29/18 Clopidogrel Bisulfate (Clopidogrel) 75 Mg Tablet, 75 MG PO DAILY for 30 Days, #30 09/29/18 Carvedilol* (Carvedilol*) 12.5 Mg Tablet, 12.5 MG PO BID WITH MEALS for 30 Days, #60 09/29/18 Metformin HCl (Metformin HCl ER) 500 Mg [id number], 1000 MG PO BID for 30 Days, #120 09/29/18 Tamsulosin Hcl* (Flomax*) 0.4 Mg Cap.er.24h, 0.4 MG PO QHS for 30 Days, #30 09/29/18 Azilsartan Medoxomil (Edarbi) 80 Mg Tablet, 80 MG PO DAILY for 30 Days, #30 09/29/18 Fenofibrate (Triglide) 160 Mg Tablet, 160 MG PO DAILY for 30 Days, #30 09/29/18 Discontinued Scripts Ondansetron (Ondansetron Odt) 4 Mg Tab.rapdis, 4 MG PO Q6H PRN for NAUSEA AND/OR VOMITING, #10 TAB Prov:EVANGELIST MILAN DO 09/22/17 Meclizine Hcl* (Meclizine Hcl*) 25 Mg Tablet, 25 MG PO Q8H PRN for DIZZINESS, #22 TAB Prov:EVANGELIST MILAN DO 09/22/17 Follow-up Plan 1. Follow up with your primary care physician in 1-2 weeks 2. Follow up with your Nitrating Acid Mixer in 1 week 3. Take Ranitidine twice a day to help with acid reflux symptoms and avoid spicy, greasy, and heavy foods 4. If experiencing any concerning symptoms, please go to your closest emergency department Primary Care Provider Not On Staff Doctor Time spent on discharge: > 30 minutes Pending Labs Laboratory Tests Test 09/28/18 23:02 09/29/18 02:45 09/29/18 07:09 09/29/18 07:41 White Blood 7.0 6.5 Count 10^3/ul (4.8-10 10^3/ul (4.8-1 .8) 0.8) Red Blood 5.03 4.89 Count 10^6/ul (4.70-6 10^6/ul (4.70- .10) 6.10) Hemoglobin 12.8 12.3 g/dl (14.0-18.0 g/dl (14.0-18. ) 0) Hematocrit 40.3 39.0 % (42.0-52.0) % (42.0-52.0) Mean 80.1 79.8 Corpuscular fl (82.0-101.0) fl (82.0-101.0 Volume ) Mean 25.4 25.2 Corpuscular pg (29.0-33.0) pg (29.0-33.0) Hemoglobin Mean 31.8 31.5 Corpuscular g/dl (32.0-37.0 g/dl (32.0-37. Hemoglobin Conc ) 0) ent Red Cell 13.4 13.6 Distribution % (11.5-14.5) % (11.5-14.5) Width Platelet Count 235 203 10^3/UL (140-41 10^3/UL (140-4 5) 15) Mean Platelet 11.0 10.8 Volume fl (7.4-10.4) fl (7.4-10.4) Immature 0.300 0.300 Granulocytes % % (0.001-0.429) % (0.001-0.429 ) Neutrophils % 59.0 55.9 % (39.0-77.0) % (39.0-77.0) Lymphocytes % 29.5 30.5 % (15.0-51.0) % (15.0-51.0) Monocytes % 7.8 9.4 % (0.0-11.0) % (0.0-11.0) Eosinophils % 3.0 % (0.0-7.0) 3.4 % (0.0-7.0) Basophils % 0.4 % (0.0-2.0) 0.5 % (0.0-2.0) Nucleated Red 0.0 0.0 Blood Cells % /100WBC (0.0-0. /100WBC (0.0-0 0) .0) Immature 0.020 0.020 Granulocytes # 10^3/ul (0.0-0. 10^3/ul (0.0-0 031) .031) Neutrophils # 4.1 3.7 10^3/ul (1.6-7. 10^3/ul (1.6-7 5) .5) Lymphocytes # 2.1 2.0 10^3/ul (0.8-2. 10^3/ul (0.8-2 9) .9) Monocytes # 0.6 0.6 10^3/ul (0.3-0. 10^3/ul (0.3-0 9) .9) Eosinophils # 0.2 0.2 10^3/ul (0.0-0. 10^3/ul (0.0-0 5) .5) Basophils # 0.0 0.0 10^3/ul (0.0-0. 10^3/ul (0.0-0 1) .1) Nucleated Red 0.0 0.0 Blood Cells # 10^3/ul (0.0-0. 10^3/ul (0.0-0 0) .0) Sodium Level 140 141 mmol/L (135-144 mmol/L (135-14 ) 4) Potassium 4.4 4.5 Level mmol/L (3.5-5.1 mmol/L (3.5-5. ) 1) Chloride Level 101 106 mmol/L (97-110) mmol/L (97-110 ) Carbon Dioxide 29 28 Level mmol/L (21-31) mmol/L (21-31) Anion Gap 10 (5-13) 7 (5-13) Blood Urea 17 mg/dl (7-20) 16 Nitrogen mg/dl (7-20) Creatinine 0.74 0.67 mg/dl (0.61-1.2 mg/dl (0.61-1. 4) 24) Est Glomerular mL/min (>60) mL/min (>60) Filtrat Rate mL/min Glucose Level 316 138 mg/dl (70-220) mg/dl (70-220) Calcium Level 10.0 9.4 mg/dl (8.4-10.2 mg/dl (8.4-10. ) 2) Magnesium 1.7 Level mg/dl (1.7-2.5) Troponin I < 0.012 0.042 ng/ml (0.000-0. ng/ml (0.000-0 120) .120) Bedside 207 136 Glucose mg/dL (70-220) mg/dL (70-220) Hemoglobin A1c 8.7 % (0-5.9) Total 0.3 Bilirubin mg/dl (0.2-1.3 ) Direct 0.00 Bilirubin mg/dl (0.00-0. 20) Indirect 0.3 Bilirubin mg/dl (0-1.1) Aspartate Amino 28 Transf (AST/SGO IU/L (15-46) T) Alanine 48 Aminotransferas IU/L (13-69) e (ALT/SGPT) Alkaline 34 Phosphatase IU/L (42-121) Creatine 71 Kinase IU/L (23-200) Creatine Kinase 1.6 Index Creatinine 1.17 Kinase MB ng/ml (0.0-2.4 (Mass) ) Total Protein 6.9 g/dl (6.1-8.1) Albumin 4.2 g/dl (3.3-4.9) Globulin 2.70 g/dl (1.3-3.2) Albumin/Globuli 1.55 n Ratio Triglycerides 192 Level mg/dl (0-149) Cholesterol 141 Level mg/dl (100-200 ) LDL 73 mg/dl Cholesterol, Calculated HDL 30 Cholesterol mg/dl (31-75) Cholesterol/HDL 4.7 RATIO Ratio Thyroid 2.530 Stimulating MIU/L (0.465-4 Hormone (TSH) .680) Test 09/29/18 10:43 09/29/18 12:03 09/29/18 17:07 Creatine 62 Kinase IU/L (23-200) Creatine Kinase 1.7 Index Creatinine 1.07 Kinase MB ng/ml (0.0-2.4) (Mass) Troponin I 0.033 ng/ml (0.000-0. 120) Bedside 187 174 Glucose mg/dL (70-220) mg/dL (70-220) RADHA ORTIZ MD September 29, 2018 18:41
[2018-09-29] MEDS ORDERED: INSULIN GLARGINE [LANTus] (100 UNITS/ML) SYG SC SCH ×2 (21:00)
[2018-09-29] MEDS ORDERED: TAMSULOSIN (SR) 0.4 MG CAP PO SCH (21:00)
[2018-09-29] MEDS ORDERED: ATORVASTATIN 20 MG TAB PO SCH (21:00)
--- NOTE | 2018-09-30 11:57 | RADRPT ---
Vent Rate: 81 bpm RR Interval: 0 msec IA Interval: 204 msec QRS Duration: 104 msec QT Interval: 362 msec QTC Interval: 420 msec P-R-T [place]: 50 - 76 - 4 degrees Normal sinus rhythm Inferior infarct , age undetermined Possible Anterior infarct , age undetermined Abnormal ECG Electronically Signed By: *[facility]
--- NOTE | 2018-09-30 11:58 | RADRPT ---
Vent Rate: 115 bpm RR Interval: 0 msec MD Interval: 156 msec QRS Duration: 110 msec QT Interval: 342 msec QTC Interval: 473 msec P-R-T [place]: 67 - 115 - 14 degrees Sinus tachycardia Left posterior fascicular block Inferior infarct , age undetermined Cannot rule out Anterior infarct , age undetermined Abnormal ECG Electronically Signed By: *[facility]
== END 2018-09-29 20:00 | disposition home or self-care (01) ==
LOC: E/R 21:48 → TEL 09-29 00:06
PROVIDERS: ADMIT Family Medicine; ATTEND Internal Medicine
DX: R07.9 Chest pain, unspecified (principal); K21.9 Gastro-esophageal reflux disease without esophagitis; I25.10 Atherosclerotic heart disease of native coronary artery without angina pectoris; Z95.1 Presence of aortocoronary bypass graft; I10 Essential (primary) hypertension; E78.5 Hyperlipidemia, unspecified; E11.65 Type 2 diabetes mellitus with hyperglycemia; Z79.4 Long term (current) use of insulin; Z79.82 Long term (current) use of aspirin; Z86.73 Personal history of transient ischemic attack (TIA), and cerebral infarction without residual deficits
CPT/HCPCS: 36415; 71045; 80048; 80053; 80061; 82550; 82553; 82962; 83036; 83735; 84443; 84484; 85025; 93005; 93306; 99285; G0378; J1815